=== PATIENT | female | born 1995 | race Caucasian/White ===

== ENCOUNTER 2017-06-25 16:06 | Emergency (ER) | payer BC ==
[~2017-06-25] VITALS: Ht 162.6 cm; Wt 68.2 kg
[2017-06-25 16:18] VITALS: TEMP 97.8
[2017-06-25 18:49] VITALS: BP 123/81; PULSE 89
== END 2017-06-25 18:50 | disposition home or self-care (01) ==
LOC: COL.ER 16:06
DX: S06.0X0A Concussion without loss of consciousness, initial encounter (principal); R40.2412 Glasgow coma scale score 13-15, at arrival to emergency department; W18.39XA Other fall on same level, initial encounter; W22.8XXA Striking against or struck by other objects, initial encounter; Y92.59 Other trade areas as the place of occurrence of the external cause